=== PATIENT | male | born 1955 | race Caucasian/White ===

== ENCOUNTER 2024-08-12 19:28 | Emergency (ER) | payer SELFPAY ==
[2024-08-12] MEDS ORDERED: Sterile Water 10 ML ONE (20:07)
[2024-08-12] MEDS ORDERED: cefTRIAXone (ROCEPHIN) 1 GM VIAL ONE (20:07)
== END 2024-08-12 21:24 | disposition home or self-care (01) ==
LOC: CSHERS 19:28
DX: J18.9 Pneumonia, unspecified organism (principal)
CPT/HCPCS: 71045; 87428; 96372; J0696